=== PATIENT | female | born 1980 | race American Indian/Alaskan Native ===

== ENCOUNTER 2017-09-13 10:30 | Emergency (ER) | payer SELFPAY ==
[2017-09-13 12:59] LABS: HCG Qualitative,Urine Negative (Negative)
[2017-09-13 13:00] LABS: Bilirubin,Urine NEG (Negative); Blood,Urine NEG (Negative); Color,Urine Yellow (Yellow); Mucus,Urine 2+ /HPF; Urobilinogen,Urine < 2.0 mg/dL (<2.0)
[2017-09-13] MEDS ORDERED: MORPHINE IV ONE (14:12)
[2017-09-13] MEDS ORDERED: ZOFRAN IV ONE (14:12)
[2017-09-13] MEDS ORDERED: NACL 0.9% 500 ML 500 ML IV ONE (14:13)
--- NOTE | 2017-09-13 14:17 | Emergency Department Report ---
Chief Complaint: Abdominal Pain Stated Complaint: LOWER ABD PAIN/VOMITING/COUGH Time Seen by Provider: 09/13/17 14:01 - HPI History of Present Illness: pt has cc of low abd pain, aching severe , started started last night - ROS Review of Systems: neg ros except, nausea, low abd pain, no flank pain, - Exam Vital Signs: Vital Signs 09/13/17 10:41 Temperature 99.1 F Pulse Rate 114 H Respiratory 18 Rate Blood Pressure 143/95 O2 Sat by Pulse 97 Oximetry Physical Exam: alert, normal gait w/o neglect or weakness, s1 s2 nrr equal bs bl with no wheeze abdomen= low aBD PAIN AND SUPRAPUBIC TENDERSS, NO RLQ TENDERNESS MSE screening note: Focused history and physical exam performed. Due to findings the following was ordered: URINE, CT ABD PEL, LABS= PT HAS DM, AND MAY HAVE FEVER HR ELEVATED, LABS ORDERD, FLUIDS ED Disposition for MSE Condition: Stable Instructions: Abdominal Pain (ED) Referrals: PRIMARY CARE, [Primary Care Provider] - 3-5 Days
[2017-09-13] MEDS ORDERED: NACL ONE ×2 (14:23→15:52)
--- NOTE | 2017-09-13 14:52 | Emergency Department Report ---
ED Abdominal Pain HPI - General Chief Complaint: Abdominal Pain Stated Complaint: LOWER ABD PAIN/VOMITING/COUGH Time Seen by Provider: 09/13/17 14:01 Source: patient Mode of arrival: Ambulatory Limitations: No Limitations - History of Present Illness Initial Comments: Pt reports cough for a few days but has been having lower abdominal pain with nausea and vomiting since last night. Reports chills and is noted to have low grade fever. Denies vaginal d/c or bleeding. MD Complaint: abdominal pain -: Gradual, days(s) (3) Location: suprapubic Radiation: none Migration to: no migration Severity: severe Severity scale (0 -10): 9 Quality: aching Consistency: constant Improves With: nothing Worsens With: nothing Associated Symptoms: nausea, vomiting, fever, chills. denies: diarrhea, constipation, dysuria, syncope - Related Data Previous Rx's Medication Instructions Recorded Last Taken Type Ciprofloxacin HCl [Cipro] 500 mg PO BID #20 tablet 09/13/17 Unknown Rx HYDROcodone/APAP 7.5-325 [Castell 1 each PO Q6HR PRN #15 tablet 09/13/17 Unknown Rx 7.5/325] Promethazine [Phenergan TAB] 25 mg PO Q6HR PRN #15 tab 09/13/17 Unknown Rx metroNIDAZOLE [Flagyl] 500 mg PO Q8HR #30 tablet 09/13/17 Unknown Rx Allergies Allergy/AdvReac Type Severity Reaction Status Date / Time No Known Allergies Allergy Unverified 09/13/17 10:41 ED Review of Systems ROS: Stated complaint: LOWER ABD PAIN/VOMITING/COUGH Other details as noted in HPI Comment: All other systems reviewed and negative Constitutional: chills, fever Eyes: denies: eye pain, eye discharge, vision change ENT: denies: ear pain, throat pain Respiratory: cough. denies: shortness of breath, wheezing Cardiovascular: denies: chest pain, palpitations Endocrine: no symptoms reported Gastrointestinal: abdominal pain, nausea, vomiting. denies: diarrhea Genitourinary: denies: urgency, dysuria, discharge Musculoskeletal: denies: back pain, joint swelling, arthralgia Skin: denies: rash, lesions Neurological: denies: headache, weakness, paresthesias Psychiatric: denies: anxiety, depression Hematological/Lymphatic: denies: easy bleeding, easy bruising ED Past Medical Hx - Past Medical History Hx Hypertension: Yes Hx Diabetes: Yes Hx Arthritis: Yes Hx Asthma: Yes - Surgical History Additional Surgical History: ectopic - Social History Smoking Status: Current Every Day Smoker Substance Use Type: Alcohol - Medications Home Medications: Home Medications Medication Instructions Recorded Confirmed Last Taken Type Ciprofloxacin HCl [Cipro] 500 mg PO BID #20 tablet 09/13/17 Unknown Rx HYDROcodone/APAP 7.5-325 [Castell 1 each PO Q6HR PRN #15 tablet 09/13/17 Unknown Rx 7.5/325] Promethazine [Phenergan TAB] 25 mg PO Q6HR PRN #15 tab 09/13/17 Unknown Rx metroNIDAZOLE [Flagyl] 500 mg PO Q8HR #30 tablet 09/13/17 Unknown Rx ED Physical Exam - General Limitations: No Limitations General appearance: alert, in no apparent distress - Head Head exam: Present: atraumatic, normocephalic - Eye Eye exam: Present: normal appearance - ENT ENT exam: Present: mucous membranes moist - Neck Neck exam: Present: normal inspection - Respiratory Respiratory exam: Present: normal lung sounds bilaterally. Absent: respiratory distress, wheezes - Cardiovascular Cardiovascular Exam: Present: normal rhythm, tachycardia (110), normal heart sounds. Absent: systolic murmur, diastolic murmur, rubs, gallop - GI/Abdominal GI/Abdominal exam: Present: soft, tenderness (suprapubic, LLQ), normal bowel sounds. Absent: distended, guarding, rebound, rigid - Extremities Exam Extremities exam: Present: normal inspection - Back Exam Back exam: Present: normal inspection. Absent: CVA tenderness (R), CVA tenderness (L) - Neurological Exam Neurological exam: Present: alert, oriented X3 - Psychiatric Psychiatric exam: Present: normal affect, normal mood - Skin Skin exam: Present: warm, dry, intact, normal color. Absent: rash ED Course Vital Signs 09/13/17 09/13/17 10:41 18:24 Temperature 99.1 F 98.1 F Pulse Rate 114 H 99 H Respiratory 18 18 Rate Blood Pressure 143/95 Blood Pressure 135/96 [Right] O2 Sat by Pulse 97 98 Oximetry - Reevaluation(s) Reevaluation #1: 09/13/17 18:34 Pt feeling better and able to tolerate PO. She is stable for d/c. Abdomen re-exam: soft, minimal LLQ tenderness. 09/13/17 18:42 ED Medical Decision Making - Lab Data Result diagrams: 09/13/17 15:27 09/13/17 15:27 UA with leukocytes and protein - EKG Data -: EKG Interpreted by Me EKG shows normal: sinus rhythm Rate: tachycardia - EKG Data When compared to previous EKG there are: previous EKG unavailable Interpretation: normal EKG - Radiology Data Radiology results: report reviewed mild sigmoid diverticulitis w/o perf or abscess on CT A/P CXR clear - Medical Decision Making Pt presented with lower abdominal pain and vomiting for a few days. She was found to have leukocytosis and a CT scan was obtained showing findings compatible with sigmoid diverticulitis. She was given IVF, Zofran, Morphine IV while in department as well as a dose of Levaquin and Flagyl prior to discharge. She will be discharged on Flagyl and Cipro. I discussed return precautions with her as well as the need for PCP follow up this week and GI to follow. She has never had a colonoscopy and likely will require one once her symptoms have resolved. - Differential Diagnosis uti, colitis/diverticulitis, dehydration Critical care attestation.: If time is entered above; I have spent that time in minutes in the direct care of this critically ill patient, excluding procedure time. ED Disposition Clinical Impression: Diverticulitis large intestine w/o perforation or abscess w/o bleeding Disposition: -01 TO HOME OR SELFCARE Is pt being admited?: No Condition: Stable Instructions: Abdominal Pain (ED), Diverticulitis (ED), Diverticulitis Diet (ED ) Additional Instructions: For worsening symptoms, please return to ER. Please ensure follow up with GI as you will likely need a colonoscopy after this illness. Your labs today show an elevated white blood cell count due to infection. Glucose elevated due to diabetes- please monitor closely during illness. Your urine showed leukocytes, likely reactive from diverticulitis. There was also some protein in your urine which will be followed by your primary doctor. Prescriptions: Ciprofloxacin HCl [Cipro] 500 mg PO BID #20 tablet HYDROcodone/APAP 7.5-325 [Castell 7.5/325] 1 each PO Q6HR PRN #15 tablet PRN Reason: Pain metroNIDAZOLE [Flagyl] 500 mg PO Q8HR #30 tablet Promethazine [Phenergan TAB] 25 mg PO Q6HR PRN #15 tab PRN Reason: Nausea Referrals: PRIMARY CARE, [Primary Care Provider] - 3-5 Days THIERNO SARAVIA MD [Staff Physician] - 3-5 Days Time of Disposition: 18:39
[2017-09-13 15:38] LABS: Basophils # (Auto) 0.1 K/mm3 (0.0-0.1); Basophils % (Auto) 0.9 % (0.0-1.8); Eosinophils # (Auto) 0.2 K/mm3 (0.0-0.4); Eosinophils % (Auto) 1.1 % (0.0-4.3); Hematocrit 43.8 % (30.3-42.9); Hemoglobin 13.9 gm/dl (10.1-14.3); Lymphocytes # (Auto) 3.4 K/mm3 (1.2-5.4); Lymphocytes % (Auto) 22.9 % (13.4-35.0); Mean Corpuscular HGB Conc 32 % (30-34); Mean Corpuscular Hemoglobin 28 pg (28-32); Mean Corpuscular Volume 87 fl (79-97); Monocytes # (Auto) 0.9 K/mm3 (0.0-0.8); Monocytes % (Auto) 6.2 % (0.0-7.3); Platelet Count 338 K/mm3 (140-440); Red Blood Count 5.06 M/mm3 (3.65-5.03); Red Cell Distribution Width 15.3 % (13.2-15.2)
--- NOTE | 2017-09-13 15:51 | XRay Report ---
FINAL REPORT EXAM: XR CHEST ROUTINE 2V HISTORY: cough and fever COMPARISON: None. TECHNIQUE: Frontal and lateral views of the chest. FINDINGS: The cardiomediastinal silhouette is normal in appearance. The lungs are clear without focal consolidation. There is no pleural effusion or pneumothorax. There is no acute soft tissue or osseous abnormality. IMPRESSION: No acute cardiopulmonary disease.
[2017-09-13 16:09] LABS: Alanine Aminotransferase 9 units/L (7-56); Albumin 4.1 g/dL (3.9-5); BUN/Creatinine Ratio 33; Blood Urea Nitrogen 13 mg/dL (7-17); Calcium 9.6 mg/dL (8.4-10.2); Hemolysis Index 0; Lipase 17 units/L (13-60)
--- NOTE | 2017-09-13 17:17 | Cat Scan Report ---
FINAL REPORT EXAM: CT ABDOMEN PELVIS W CON HISTORY: low abd pain TECHNIQUE: CT examination of the ABDOMEN after IV contrast CT examination of the PELVIS after IV contrast PRIORS: None. FINDINGS: Normal-appearing liver, gallbladder, adrenals, pancreas, and spleen. Intact normal caliber abdominal aorta and IVC. Artifact of early IV contrast excretion versus 1 mm nonobstructing bilateral renal calculi. No hydronephrosis. No ureteral calculus or distention. Intact anterior abdominal wall. No retroperitoneal adenopathy. No mesenteric mass. Normal-appearing stomach and duodenal. No small bowel distention in the abdomen and pelvis. No pelvic free fluid. Normal-appearing urinary bladder, uterus, adnexae, and rectum. No gross ascites, free air, or colonic distention. Normal-appearing cecum, terminal ileum, and appendix. Slight diverticulosis transverse colon. Moderate diverticulosis descending and sigmoid colon. In the mid sigmoid colon, there is slight mural thickening and slight adjacent fat stranding. This is suggestive of mild localized acute diverticulitis. No perforation or diverticular abscess. IMPRESSION: Findings most compatible with mild acute diverticulitis in the mid sigmoid colon Artifact of early IV contrast excretion versus 1 mm nonobstructing bilateral renal calculi
[2017-09-13] MEDS ORDERED: LEVAQUIN PO ONE (17:53)
[2017-09-13] MEDS ORDERED: FLAGYL PO ONE (17:53)
[2017-09-13 18:25] VITALS: BP 135/96
[2017-09-13] MEDS ORDERED: PERCOCET 5/325 PO ONE (18:33)
== END 2017-09-13 19:00 | disposition home or self-care (01) ==
LOC: ED 10:30
DX: K57.32 Diverticulitis of large intestine without perforation or abscess without bleeding (principal); I10 Essential (primary) hypertension; E11.9 Type 2 diabetes mellitus without complications; M19.90 Unspecified osteoarthritis, unspecified site; F17.200 Nicotine dependence, unspecified, uncomplicated
CPT/HCPCS: 36415; 71046; 74177; 80053; 81001; 81025; 82010; 83690; 85025; 93005; 93010; 96374; 96375; 99284; J2270; J2405; J7040; Q9967